=== PATIENT | female | born 1960 | race Caucasian/White ===

== ENCOUNTER 2023-07-13 19:23 | Emergency (ER) | payer OTHER ==
[~2023-07-13] VITALS: Ht 167.6 cm; Wt 62.6 kg
[2023-07-13 20:24] LABS: BASOPHILS % (AUTO) 0.4 % (0.0-2.0); EOSINOPHILS # (AUTO) 0.2 K/uL (0.0-0.7); EOSINOPHILS % (AUTO) 1.9 % (0.0-7.0); HEMATOCRIT 41.4 % (31.2-41.9); HEMOGLOBIN 13.6 g/dL (10.9-14.3); LYMPHOCYTES # (AUTO) 2.2 K/uL (0.8-4.8); LYMPHOCYTES % (AUTO) 19.6 % (20.5-51.5); MEAN CORPUSCULAR HEMOGLOBIN 31.2 uug (24.7-32.8); MEAN CORPUSCULAR HGB CONC 33 g/dL (32.3-35.6); MEAN CORPUSCULAR VOLUME 94.9 fL (75.5-95.3); MONOCYTES # (AUTO) 0.6 K/uL (0.1-1.30); MONOCYTES % (AUTO) 5.4 % (0.0-11.0); NEUTROPHILS % (AUTO) 72.7 % (38.5-71.5); PLATELET COUNT (AUTO) 282 K/uL (179-408); RED BLOOD CELL COUNT(AUTO) 4.36 MIL/uL (3.63-4.92); RED CELL DISTRIBUTION WIDTH 17.1 % (12.3-17.7)
[2023-07-13 20:28] LABS: DIFFERENTIAL COMMENT 1
[2023-07-13] MEDS ORDERED: ASPIRIN 81 MG TAB.CHEW ONE (20:31)
[2023-07-13 20:32] LABS: CALCIUM 9.6 mg/dL (8.5-10.1); CARBON DIOXIDE 25 mmol/L (21-32); CHLORIDE 104 mmol/L (98-107); GLUCOSE 132 mg/dL (74-106); POTASSIUM 3.8 mmol/L (3.5-5.1); SODIUM SERUM 142 mmol/L (136-145); UREA NITROGEN, BLOOD 27 mg/dL (7-18)
[2023-07-13 20:46] LABS: NT-PRO BNP 416 pg/mL (0-125)
[2023-07-13] MEDS: ASPIRIN 81 MG TAB.CHEW PO ONE (20:47)
[2023-07-13] MEDS ORDERED: FLAS1EAC2 TP (23:13)
[2023-07-13] MEDS ORDERED: FLAS1KIT2 TP (23:13)
[2023-07-13] MEDS ORDERED: ACET1TAB23 PO (23:13)
[2023-07-13 23:22] VITALS: BP 141/65; O2SAT 96
== END 2023-07-14 00:27 | disposition home or self-care (01) ==
LOC: ER 19:30
DX: M54.12 Radiculopathy, cervical region (principal); E11.40 Type 2 diabetes mellitus with diabetic neuropathy, unspecified; E11.22 Type 2 diabetes mellitus with diabetic chronic kidney disease; R07.89 Other chest pain; Z79.899 Other long term (current) drug therapy; Z88.0 Allergy status to penicillin
CPT/HCPCS: 36415; 71045; 72125; 84484; 85025; 93005; A4606; A4663